=== PATIENT | female | born 1970 | race Caucasian/White ===

== ENCOUNTER 2019-10-18 05:46 | Emergency (ER) | payer SELFPAY ==
[~2019-10-18] VITALS: Ht 152.4 cm; Wt 64.0 kg
[~2019-10-18 05:46] MED LIST: CLIN300C11 PO; DOXY150T5 PO; LORA1TAB PO
[2019-10-18] MEDS ORDERED: SODIUM CHLORIDE 0.9% 1,000 ML IV ONE (06:59)
[2019-10-18 07:15] LABS: BASOPHILS % 0.8 % (0.0-2.0); EOSINOPHILS % 0.3 % (0.0-5.0); HEMATOCRIT. 42.7 % (36.0-48.0); HEMOGLOBIN. 14.4 g/dL (12.0-16.0); LYMPHOCYTES % 44.1 % (20.0-50.0); MEAN CORPUSCULAR HEMOGLOBIN 27.6 pg (28.0-32.0); MEAN CORPUSCULAR VOLUME 81.6 fL (81.0-99.0); MEAN PLATELET VOLUME 7.7 fl (7.4-10.4); MONOCYTES % 7.3 % (2.0-8.0); NEUTROPHILS % 47.5 % (40.0-76.0); PLATELET 286 x1000/uL (130-400); RED BLOOD CELL COUNT 5.23 mill/uL (4.2-5.4); RED CELL DISTRIBUTION WIDTH 14.9 % (11.6-14.6)
[2019-10-18 07:21] LABS: CHLORIDE 109 mEq/L (98-107)
[2019-10-18 07:42] LABS: ETHANOL BLOOD 400 mg/dL
[2019-10-18 10:00] VITALS: BP 148/72
== END 2019-10-18 11:11 | disposition home or self-care (01) ==
LOC: ER 05:46
DX: F10.229 Alcohol dependence with intoxication, unspecified (principal); R07.89 Other chest pain; E11.9 Type 2 diabetes mellitus without complications; I10 Essential (primary) hypertension; Y90.8 Blood alcohol level of 240 mg/100 ml or more
CPT/HCPCS: 36415; 71045; 80053; 80320; 83880; 84484; 85025; 93005; 99285; J7030; G0480

== ENCOUNTER 2021-06-25 17:41 | Emergency (ER) | payer MEDICAID ==
[~2021-06-25] VITALS: Ht 149.9 cm; Wt 63.9 kg
[~2021-06-25 17:41] MED LIST changes: -CLIN300C11 PO; +CLIN300C12 PO
[2021-06-25] MEDS ORDERED: DEXT 5%/0.9% NACL KCL 20MEQ/L 1,000 ML IV STA (18:08)
[2021-06-25] MEDS ORDERED: ONDANSETRON 4MG ODT PO STA (18:08)
[2021-06-25] MEDS ORDERED: LORAZEPAM 2MG/ML CPJ IV ONE (18:15)
[2021-06-25 18:58] LABS: BASOPHILS % 0.7 % (0.0-2.0); EOSINOPHILS % 0.2 % (0.0-5.0); HEMATOCRIT. 40.7 % (36.0-48.0); HEMOGLOBIN. 13.4 g/dL (12.0-16.0); LYMPHOCYTES % 25.4 % (20.0-50.0); MEAN CORPUSCULAR HEMOGLOBIN 28.2 pg (28.0-32.0); MEAN CORPUSCULAR VOLUME 85.9 fL (81.0-99.0); MEAN PLATELET VOLUME 7.4 fl (7.4-10.4); MONOCYTES % 5.3 % (2.0-8.0); NEUTROPHILS % 68.4 % (40.0-76.0); PLATELET 236 x1000/uL (130-400); RED BLOOD CELL COUNT 4.74 mill/uL (4.2-5.4); RED CELL DISTRIBUTION WIDTH 14.5 % (11.6-14.6)
[2021-06-25 19:03] LABS: CHLORIDE 105 mEq/L (98-107)
[2021-06-25 19:06] LABS: HCG SCREEN NEGATIVE
[2021-06-25] MEDS ORDERED: LORA-250 MT (20:24)
[2021-06-25 21:25] VITALS: BP 130/87
== END 2021-06-25 21:25 | disposition home or self-care (01) ==
LOC: ER 17:41
DX: F10.239 Alcohol dependence with withdrawal, unspecified (principal); R00.0 Tachycardia, unspecified; Y90.9 Presence of alcohol in blood, level not specified
CPT/HCPCS: 36415; 80053; 82962; 83690; 84703; 85025; 93005; 96374; 99284; J2060; Q0162

== ENCOUNTER 2021-11-30 13:54 | Emergency (ER) | payer MEDICAID ==
[~2021-11-30] VITALS: Ht 162.6 cm; Wt 65.0 kg
[~2021-11-30 13:54] MED LIST changes: +LORA-250 MT
[2021-11-30] MEDS ORDERED: SODIUM CHLORIDE 0.9% 1,000 ML IV ONE (16:30)
[2021-11-30 20:00] VITALS: BP 127/85
== END 2021-11-30 20:35 | disposition home or self-care (01) ==
LOC: ER 13:54
DX: F10.229 Alcohol dependence with intoxication, unspecified (principal); Y90.9 Presence of alcohol in blood, level not specified; E86.0 Dehydration; Z63.4 Disappearance and death of family member; I10 Essential (primary) hypertension; E11.9 Type 2 diabetes mellitus without complications; G40.909 Epilepsy, unspecified, not intractable, without status epilepticus; Z85.038 Personal history of other malignant neoplasm of large intestine; Z79.899 Other long term (current) drug therapy
CPT/HCPCS: 93005; 96360; 99283; J7030

== ENCOUNTER 2022-01-20 23:11 | Emergency (ER) | payer MEDICAID ==
[~2022-01-20] VITALS: Ht 152.4 cm; Wt 57.2 kg
[~2022-01-20 23:11] MED LIST changes: +CLIN-194 PO; -CLIN300C12 PO
[2022-01-21] MEDS ORDERED: LORAZEPAM 0.5MG TABLET PO ONE (08:15)
[2022-01-21 08:52] LABS: BASOPHILS % 0.9 % (0.0-2.0); EOSINOPHILS % 1.2 % (0.0-5.0); HEMATOCRIT. 40.5 % (36.0-48.0); HEMOGLOBIN. 13.6 g/dL (12.0-16.0); LYMPHOCYTES % 34.9 % (20.0-50.0); MEAN CORPUSCULAR HEMOGLOBIN 28.9 pg (28.0-32.0); MEAN CORPUSCULAR VOLUME 85.7 fL (81.0-99.0); MEAN PLATELET VOLUME 9.2 fl (7.4-10.4); MONOCYTES % 8.6 % (2.0-8.0); NEUTROPHILS % 54.4 % (40.0-76.0); PLATELET 137 x1000/uL (130-400); RED BLOOD CELL COUNT 4.73 mill/uL (4.2-5.4); RED CELL DISTRIBUTION WIDTH 14.4 % (11.6-14.6)
[2022-01-21 09:09] LABS: CHLORIDE 101 mEq/L (98-107)
[2022-01-21 09:20] LABS: ETHANOL BLOOD < 10 mg/dL
[2022-01-21] MEDS ORDERED: POTASSIUM-SODIUM PHOSPHATE POWDER PACKET PO ONE (09:30)
[2022-01-21 09:50] LABS: *AMPHETAMINES SCREEN URINE NEGATIVE (NEGATIVE); *BARBITURATES SCREEN URINE NEGATIVE (NEGATIVE); *BENZODIAZEPINES SCREEN URINE PRESUMTIVE POSITIVE (NEGATIVE); *COCAINE SCREEN URINE NEGATIVE (NEGATIVE); CANNABINOID URINE SCREEN NEGATIVE (NEGATIVE); METHADONE URINE SCREEN NEGATIVE (NEGATIVE); OPIATES URINE SCREEN NEGATIVE (NEGATIVE); PHENCYCLIDINE URINE SCREEN NEGATIVE (NEGATIVE)
[2022-01-21] MEDS ORDERED: KETOROLAC 30MG/ML VIAL IM NR (10:00)
[2022-01-21] MEDS ORDERED: KCL 20MEQ/100ML PREMIX 100 ML IV NR (11:00)
[2022-01-21] MEDS ORDERED: POTASSIUM CHLORIDE INJ 40 MEQ in DEXT 5% WATER 250 ML IV ONE (11:45)
[2022-01-21] MEDS ORDERED: POTASSIUM CHLORIDE 20MEQ/PACKET PO ONE (14:45)
[2022-01-21 15:39] VITALS: BP 112/80
== END 2022-01-21 15:48 | disposition home or self-care (01) ==
LOC: ER 23:34
DX: R07.89 Other chest pain (principal); E87.6 Hypokalemia; I10 Essential (primary) hypertension; G40.909 Epilepsy, unspecified, not intractable, without status epilepticus; Z85.038 Personal history of other malignant neoplasm of large intestine; Z90.49 Acquired absence of other specified parts of digestive tract
CPT/HCPCS: 36415; 70450; 71045; 76705; 80053; 80305; 80320; 83880; 84484; 85025; 93005; 96365; 96372; 99285; J1885; J3480; J7060; G0480

== ENCOUNTER 2022-04-18 04:57 | Inpatient (IN) | payer MEDICAID ==
[~2022-04-18] VITALS: Ht 149.9 cm; Wt 52.6 kg
[2022-04-18] MEDS ORDERED: CHLORDIAZEPOXIDE 25MG CAPSULE PO ONE (05:30)
[2022-04-18 05:46] LABS: BASOPHILS % 0.7 % (0.0-2.0); EOSINOPHILS % 0.4 % (0.0-5.0); HEMATOCRIT. 41.9 % (36.0-48.0); LYMPHOCYTES % 42.4 % (20.0-50.0); MEAN CORPUSCULAR HEMOGLOBIN 29.2 pg (28.0-32.0); MEAN CORPUSCULAR VOLUME 87.7 fL (81.0-99.0); MEAN PLATELET VOLUME 8.6 fl (7.4-10.4); MONOCYTES % 4.9 % (2.0-8.0); NEUTROPHILS % 51.6 % (40.0-76.0); PLATELET 169 x1000/uL (130-400); RED BLOOD CELL COUNT 4.78 mill/uL (4.2-5.4); RED CELL DISTRIBUTION WIDTH 14.1 % (11.6-14.6)
[2022-04-18 05:47] LABS: CHLORIDE 100 mEq/L (98-107)
[2022-04-18] MEDS ORDERED: SODIUM CHLORIDE 0.9% 1,000 ML IV ONE (07:15)
[2022-04-18] MEDS ORDERED: MIDAZOLAM HCL 2 MG/2 ML VIAL IV ONE (07:30)
[2022-04-18] MEDS ORDERED: KETOROLAC 15MG/ML VIAL IV PRN (10:30)
[2022-04-18] MEDS ORDERED: MAGNESIUM/ALUMINUM HYDROXIDE/SIMETHICONE 30ML UDC PO PRN (10:30)
[2022-04-18] MEDS ORDERED: CLONIDINE 0.1MG TABLET PO PRN (10:30)
[2022-04-18] MEDS ORDERED: ONDANSETRON HCL 4MG/2ML INJ IV PRN (10:30)
[2022-04-18] MEDS ORDERED: DIAZEPAM 5 MG/ML 2ML CPJ IV PRN (10:30)
[2022-04-18] MEDS ORDERED: DOCUSATE SODIUM 100MG CAPSULE PO PRN (10:30)
[2022-04-18] MEDS ORDERED: IPRATROPIUM/ALBUTEROL 0.5-3(2.5)MG/3ML NEB NEB PRN (10:30)
[2022-04-18] MEDS ORDERED: GUAIFENESIN 200MG/10ML SUGAR FREE UDC PO PRN (10:30)
[2022-04-18] MEDS ORDERED: ACETAMINOPHEN 325MG TABLET PO PRN ×2 (10:30)
[2022-04-18] MEDS ORDERED: NITROGLYCERIN 0.4MG TABLET SL SL PRN (10:30)
[2022-04-18 10:58] LABS: TOTAL IRON BINDING CAPACITY 317 ug/dL (250-450)
[2022-04-18] MEDS ORDERED: MVI, ADULT NO.1 10 ML, FOLIC ACID 1 MG, THIAMINE HCL 100 MG in SODIUM CHLORIDE 0.9% 1,0... IV SCH ×4 (11:00)
[2022-04-18 11:32] LABS: FOLIC ACID (FOLATE) SERUM 17.1 ng/mL (>5.38)
[2022-04-18] MEDS: ENOXAPARIN 40MG/0.4ML SYR SUBCUT SCH (11:39)
[2022-04-18] MEDS: CHLORDIAZEPOXIDE 25MG CAPSULE PO SCH ×2 (14:22→21:25)
[2022-04-18 16:40] VITALS: BP 125/82
[2022-04-18] MEDS ORDERED: AMLO2.5T45 PO (17:43)
[2022-04-18 20:00] VITALS: BP 125/77
[2022-04-18] MEDS: FAMOTIDINE 20MG TABLET PO SCH (21:24)
[2022-04-18 23:47] VITALS: BP 121/71
[2022-04-19 04:00] VITALS: BP 114/70
[2022-04-19] MEDS: CHLORDIAZEPOXIDE 25MG CAPSULE PO SCH ×3 (05:41→20:38)
[2022-04-19 07:52] LABS: CHLORIDE 99 mEq/L (98-107)
[2022-04-19 07:59] LABS: PHOSPHORUS 1.4 mg/dL (2.5-4.9)
[2022-04-19 08:14] LABS: BASOPHILS % 0.4 % (0.0-2.0); EOSINOPHILS % 3.6 % (0.0-5.0); HEMATOCRIT. 36.9 % (36.0-48.0); HEMOGLOBIN. 12.6 g/dL (12.0-16.0); LYMPHOCYTES % 40.3 % (20.0-50.0); MONOCYTES % 6.1 % (2.0-8.0); NEUTROPHILS % 49.6 % (40.0-76.0); PLATELET 109 x1000/uL (130-400); RED CELL DISTRIBUTION WIDTH 13.8 % (11.6-14.6)
[2022-04-19] MEDS: ENOXAPARIN 40MG/0.4ML SYR SUBCUT SCH (11:13)
[2022-04-19] MEDS: FAMOTIDINE 20MG TABLET PO SCH ×2 (11:15→20:38)
[2022-04-19 11:32] LABS: CLARITY URINE CLEAR (CLEAR); COLOR URINE YELLOW (YELLOW); KETONES URINE 4+ (NEGATIVE); LEUKOCYTE ESTERASE URINE 2+ (NEGATIVE); NITRITE URINE NEGATIVE (NEGATIVE); OCCULT BLOOD URINE NEGATIVE (NEGATIVE); PROTEIN URINE NEGATIVE (NEGATIVE); UROBILINOGEN URINE 0.2 E.U./dL (0.2-1.0)
[2022-04-19 11:51] LABS: *AMPHETAMINES SCREEN URINE NEGATIVE (NEGATIVE); *BARBITURATES SCREEN URINE NEGATIVE (NEGATIVE); *BENZODIAZEPINES SCREEN URINE PRESUMTIVE POSITIVE (NEGATIVE); *COCAINE SCREEN URINE NEGATIVE (NEGATIVE); CANNABINOID URINE SCREEN NEGATIVE (NEGATIVE); METHADONE URINE SCREEN NEGATIVE (NEGATIVE); OPIATES URINE SCREEN NEGATIVE (NEGATIVE); PHENCYCLIDINE URINE SCREEN NEGATIVE (NEGATIVE)
[2022-04-19 20:01] VITALS: BP 153/93
[2022-04-19] MEDS ORDERED: POTASSIUM CHLORIDE 20MEQ TABLET SR PO NR (23:15)
[2022-04-20] VITALS: BP 104/75
[2022-04-20] MEDS ORDERED: MAGNESIUM 2 G PREMIX 50 ML IV NR
[2022-04-20 04:00] VITALS: BP 106/74
[2022-04-20] MEDS: CHLORDIAZEPOXIDE 25MG CAPSULE PO SCH ×3 (05:49→21:27)
[2022-04-20 08:00] VITALS: BP 108/75
[2022-04-20] MEDS ORDERED: ROPIVACAINE HCL/PF EPIDURAL 200 ML EPI ONE (08:37)
[2022-04-20] MEDS ORDERED: FENTANYL CITRATE/PF 50MCG/ML 2ML VIAL ONE (08:37)
[2022-04-20] MEDS: FAMOTIDINE 20MG TABLET PO SCH ×2 (10:18→21:27)
[2022-04-20] MEDS: ENOXAPARIN 40MG/0.4ML SYR SUBCUT SCH (10:19)
[2022-04-20 12:00] VITALS: BP 128/87
[2022-04-20 16:00] VITALS: BP 125/61
[2022-04-20] MEDS: MULTIVITAMINS,THER W-MINERALS TABLET PO SCH (18:32)
[2022-04-20] MEDS: FOLIC ACID 1MG TABLET PO SCH (18:40)
[2022-04-20] MEDS: CEPHALEXIN 250MG CAPSULE PO SCH (18:40)
[2022-04-20 20:00] VITALS: BP 116/84
[2022-04-21] VITALS: BP 114/77
[2022-04-21] MEDS: CEPHALEXIN 250MG CAPSULE PO SCH ×5 (01:04→23:46)
[2022-04-21 04:30] VITALS: BP 108/56
[2022-04-21] MEDS: CHLORDIAZEPOXIDE 25MG CAPSULE PO SCH (05:41)
[2022-04-21 08:00] VITALS: BP 118/76
[2022-04-21] MEDS ORDERED: CEPHALEXIN 250MG/5ML ORAL SYRINGE PO SCH (08:00)
[2022-04-21] MEDS: FOLIC ACID 1MG TABLET PO SCH (08:41)
[2022-04-21] MEDS: FAMOTIDINE 20MG TABLET PO SCH ×2 (08:41→20:09)
[2022-04-21] MEDS: MULTIVITAMINS,THER W-MINERALS TABLET PO SCH (08:41)
[2022-04-21] MEDS: ENOXAPARIN 40MG/0.4ML SYR SUBCUT SCH (11:11)
[2022-04-21 12:00] VITALS: BP 103/70
[2022-04-21] MEDS: CHLORDIAZEPOXIDE 10MG CAPSULE PO SCH ×2 (13:37→21:25)
[2022-04-21 15:56] VITALS: BP 116/84
[2022-04-21 17:17] LABS: BASOPHILS % 0.5 % (0.0-2.0); EOSINOPHILS % 2.1 % (0.0-5.0); HEMATOCRIT. 38.2 % (36.0-48.0); HEMOGLOBIN. 12.9 g/dL (12.0-16.0); LYMPHOCYTES % 33.7 % (20.0-50.0); MEAN CORPUSCULAR HEMOGLOBIN 29.6 pg (28.0-32.0); MEAN CORPUSCULAR VOLUME 87.6 fL (81.0-99.0); MEAN PLATELET VOLUME 9.7 fl (7.4-10.4); MONOCYTES % 5.4 % (2.0-8.0); NEUTROPHILS % 58.3 % (40.0-76.0); PLATELET 106 x1000/uL (130-400); RED BLOOD CELL COUNT 4.36 mill/uL (4.2-5.4); RED CELL DISTRIBUTION WIDTH 13.5 % (11.6-14.6)
[2022-04-21 17:27] LABS: CHLORIDE 103 mEq/L (98-107)
[2022-04-21 20:00] VITALS: BP 123/86
[2022-04-22] VITALS: BP 112/74
[2022-04-22 04:00] VITALS: BP 98/74
[2022-04-22] MEDS: CHLORDIAZEPOXIDE 10MG CAPSULE PO SCH (05:54)
[2022-04-22] MEDS: CEPHALEXIN 250MG CAPSULE PO SCH (05:54)
[2022-04-22 08:00] VITALS: BP 124/82
[2022-04-22] MEDS: MULTIVITAMINS,THER W-MINERALS TABLET PO SCH (08:19)
[2022-04-22] MEDS: FOLIC ACID 1MG TABLET PO SCH (08:19)
[2022-04-22] MEDS: FAMOTIDINE 20MG TABLET PO SCH (08:19)
[2022-04-22] MEDS ORDERED: THIA50TA12 MT (10:27)
[2022-04-22] MEDS ORDERED: FOLI-43 PO (10:27)
[2022-04-22 11:14] VITALS: BP 127/80
[2022-04-22 11:30] VITALS: BP 127/80
== END 2022-04-22 11:30 | disposition home or self-care (01) | DRG 241 ==
LOC: ER 04:57 → EDBEDREQ 08:30 → 8WST 16:41
PROVIDERS: ADMIT Internal Medicine; ATTEND Internal Medicine
DX: K29.00 Acute gastritis without bleeding (principal); F10.231 Alcohol dependence with withdrawal delirium; E46 Unspecified protein-calorie malnutrition; E87.2 Acidosis; E83.51 Hypocalcemia; I10 Essential (primary) hypertension; E11.9 Type 2 diabetes mellitus without complications; F41.1 Generalized anxiety disorder; G40.909 Epilepsy, unspecified, not intractable, without status epilepticus; J45.909 Unspecified asthma, uncomplicated; Z79.899 Other long term (current) drug therapy; Z86.16 Personal history of COVID-19; Z59.00 Homelessness unspecified; Z68.23 Body mass index [BMI] 23.0-23.9, adult
CPT/HCPCS: 36415; 71045; 80048; 80053; 80305; 80320; 81003; 82607; 82746; 83036; 83540; 83550; 83605; 83735; 83880; 84100; 84484; 85025; 93005; 93970; 97162; 97165; 99285; J1650; J1885; J2250; J2795; J3010; J3411; J3475; J3490; J7030; G0480

== ENCOUNTER 2022-04-26 17:53 | Emergency (ER) | payer MEDICAID ==
[~2022-04-26] VITALS: Ht 149.9 cm; Wt 73.0 kg
[~2022-04-26 17:53] MED LIST changes: +AMLO2.5T45 PO; +FOLI-43 PO; +THIA50TA12 MT
[2022-04-26 17:55] VITALS: BP 114/78
[2022-04-26 19:07] LABS: BASOPHILS % 0.7 % (0.0-2.0); EOSINOPHILS % 3.1 % (0.0-5.0); HEMATOCRIT. 35.8 % (36.0-48.0); HEMOGLOBIN. 11.7 g/dL (12.0-16.0); MEAN CORPUSCULAR HEMOGLOBIN 29.5 pg (28.0-32.0); MEAN CORPUSCULAR VOLUME 90.7 fL (81.0-99.0); MEAN PLATELET VOLUME 7.8 fl (7.4-10.4); MONOCYTES % 8.4 % (2.0-8.0); NEUTROPHILS % 33.8 % (40.0-76.0); PLATELET 277 x1000/uL (130-400); RED BLOOD CELL COUNT 3.95 mill/uL (4.2-5.4); RED CELL DISTRIBUTION WIDTH 14.6 % (11.6-14.6)
[2022-04-26 19:14] LABS: CHLORIDE 113 mEq/L (98-107)
[2022-04-26 21:09] LABS: HCG SCREEN NEGATIVE
[2022-04-26 21:12] LABS: ETHANOL BLOOD 201 mg/dL
[2022-04-26] MEDS ORDERED: VISCOUS LIDOCAINE 2% 15 ML UDC MM STA (21:18)
[2022-04-26] MEDS ORDERED: FAMOTIDINE 20MG TABLET PO ONE (21:30)
[2022-04-26] MEDS ORDERED: ONDANSETRON 4MG ODT PO ONE (21:30)
[2022-04-26] MEDS ORDERED: MAGNESIUM/ALUMINUM HYDROXIDE/SIMETHICONE 30ML UDC PO ONE (21:30)
== END 2022-04-26 21:53 | disposition home or self-care (01) ==
LOC: ER 17:53
DX: R07.89 Other chest pain (principal); F41.9 Anxiety disorder, unspecified; F10.20 Alcohol dependence, uncomplicated; Y90.7 Blood alcohol level of 200-239 mg/100 ml; R94.31 Abnormal electrocardiogram [ECG] [EKG]; I10 Essential (primary) hypertension; G40.909 Epilepsy, unspecified, not intractable, without status epilepticus; Z86.73 Personal history of transient ischemic attack (TIA), and cerebral infarction without residual deficits; Z85.038 Personal history of other malignant neoplasm of large intestine; Z79.899 Other long term (current) drug therapy
CPT/HCPCS: 36415; 71045; 80053; 80320; 83880; 84484; 84703; 85025; 93005; 99285; G0480

== ENCOUNTER 2022-05-11 22:06 | Emergency (ER) | payer MEDICAID ==
[~2022-05-11] VITALS: Ht 160 cm; Wt 45.0 kg
[~2022-05-11 22:06] MED LIST changes: -AMLO2.5T45 PO; -CLIN-194 PO; -DOXY150T5 PO; -LORA-250 MT; -LORA1TAB PO
[2022-05-11 22:19] VITALS: BP 113/76
== END 2022-05-12 05:25 | disposition home or self-care (01) ==
LOC: ER 22:06
DX: R51.9 Headache, unspecified (principal); I10 Essential (primary) hypertension; G40.909 Epilepsy, unspecified, not intractable, without status epilepticus; F10.229 Alcohol dependence with intoxication, unspecified; Y90.9 Presence of alcohol in blood, level not specified; Z85.9 Personal history of malignant neoplasm, unspecified; Y04.0XXA Assault by unarmed brawl or fight, initial encounter; Y07.499 Other family member, perpetrator of maltreatment and neglect; Y93.89 Activity, other specified; Y92.018 Other place in single-family (private) house as the place of occurrence of the external cause
CPT/HCPCS: 99284

== ENCOUNTER 2022-07-21 15:00 | Emergency (ER) | payer MEDICAID ==
[~2022-07-21] VITALS: Ht 160 cm; Wt 55.0 kg
[2022-07-21 15:09] VITALS: BP 149/93
[2022-07-21] MEDS ORDERED: SODIUM CHLORIDE 0.9% 1,000 ML IV ONE ×2 (16:00)
[2022-07-21 17:16] LABS: BASOPHILS % 0.9 % (0.0-2.0); EOSINOPHILS % 0.6 % (0.0-5.0); HEMATOCRIT. 45.6 % (36.0-48.0); HEMOGLOBIN. 15.2 g/dL (12.0-16.0); LYMPHOCYTES % 52.3 % (20.0-50.0); MEAN CORPUSCULAR HEMOGLOBIN 30.6 pg (28.0-32.0); MEAN CORPUSCULAR VOLUME 91.8 fL (81.0-99.0); MEAN PLATELET VOLUME 7.9 fl (7.4-10.4); MONOCYTES % 3.5 % (2.0-8.0); NEUTROPHILS % 42.7 % (40.0-76.0); PLATELET 229 x1000/uL (130-400); RED BLOOD CELL COUNT 4.97 mill/uL (4.2-5.4); RED CELL DISTRIBUTION WIDTH 15.7 % (11.6-14.6)
[2022-07-21 17:25] LABS: CHLORIDE 106 mEq/L (98-107)
[2022-07-21 17:48] LABS: HCG SCREEN NEGATIVE
[2022-07-21 18:10] LABS: ETHANOL BLOOD 383 mg/dL
== END 2022-07-21 19:14 | disposition home or self-care (01) ==
LOC: ER 15:00
DX: F10.229 Alcohol dependence with intoxication, unspecified (principal); F32.A Depression, unspecified; I10 Essential (primary) hypertension; G40.909 Epilepsy, unspecified, not intractable, without status epilepticus; Z85.038 Personal history of other malignant neoplasm of large intestine; Y90.8 Blood alcohol level of 240 mg/100 ml or more
CPT/HCPCS: 36415; 80053; 80307; 80320; 80329; 84703; 85025; 96360; 99283; J7030; G0480

== ENCOUNTER 2022-07-27 10:58 | Emergency (ER) | payer MEDICAID ==
[~2022-07-27] VITALS: Ht 165.1 cm; Wt 60.0 kg
[2022-07-27 12:57] LABS: CHLORIDE 100 mEq/L (98-107)
[2022-07-27 13:18] LABS: BASOPHILS % 0.7 % (0.0-2.0); EOSINOPHILS % 0.1 % (0.0-5.0); HEMATOCRIT. 43.3 % (36.0-48.0); HEMOGLOBIN. 14.7 g/dL (12.0-16.0); LYMPHOCYTES % 38.8 % (20.0-50.0); MEAN CORPUSCULAR HEMOGLOBIN 30.8 pg (28.0-32.0); MEAN CORPUSCULAR VOLUME 90.6 fL (81.0-99.0); MEAN PLATELET VOLUME 8.8 fl (7.4-10.4); MONOCYTES % 2.8 % (2.0-8.0); NEUTROPHILS % 57.6 % (40.0-76.0); PLATELET 92 x1000/uL (130-400); RED BLOOD CELL COUNT 4.78 mill/uL (4.2-5.4)
[2022-07-27 13:20] LABS: HCG SCREEN NEGATIVE
[2022-07-27] MEDS ORDERED: FOLIC ACID 1 MG, THIAMINE HCL 100 MG, MVI, ADULT NO.1 10 ML in DEXTROSE 5% WATER 1,000 ML IV ONE ×4 (14:45)
[2022-07-27] MEDS ORDERED: CHLORDIAZEPOXIDE 25MG CAPSULE PO ONE (15:00)
[2022-07-27 17:40] VITALS: BP 144/58
[2022-07-27 17:41] LABS: ETHANOL BLOOD 501 mg/dL
== END 2022-07-27 18:18 | disposition home or self-care (01) ==
LOC: ER 10:58
DX: F10.129 Alcohol abuse with intoxication, unspecified (principal); I10 Essential (primary) hypertension; Z86.59 Personal history of other mental and behavioral disorders; Y90.9 Presence of alcohol in blood, level not specified
CPT/HCPCS: 36415; 73502; 80053; 80320; 84703; 85025; 96365; 99284; J3411; J3490; J7070; Z7610; G0480

== ENCOUNTER 2022-09-10 05:55 | Emergency (ER) | payer MEDICAID ==
[~2022-09-10] VITALS: Ht 152.4 cm; Wt 47.0 kg
[2022-09-10 06:07] VITALS: BP 133/87
== END 2022-09-10 08:21 | disposition left against medical advice (07) ==
LOC: ER 05:55
DX: Z53.21 Procedure and treatment not carried out due to patient leaving prior to being seen by health care provider (principal)

== ENCOUNTER 2022-09-10 12:10 | Emergency (ER) | payer MEDICAID ==
[~2022-09-10] VITALS: Ht 162.6 cm; Wt 64.0 kg
[2022-09-10 12:12] VITALS: BP 104/82
[2022-09-10 12:58] LABS: BASOPHILS % 0.6 % (0.0-2.0); EOSINOPHILS % 0.1 % (0.0-5.0); HEMOGLOBIN. 14.9 g/dL (12.0-16.0); NEUTROPHILS % 61.2 % (40.0-76.0)
[2022-09-10 13:01] LABS: HEMATOCRIT. 44.5 % (36.0-48.0); LYMPHOCYTES % 34.1 % (20.0-50.0); MEAN CORPUSCULAR HEMOGLOBIN 30.1 pg (28.0-32.0); MEAN CORPUSCULAR VOLUME 89.6 fL (81.0-99.0); PLATELET 257 x1000/uL (130-400); RED BLOOD CELL COUNT 4.97 mill/uL (4.2-5.4); RED CELL DISTRIBUTION WIDTH 14.4 % (11.6-14.6)
[2022-09-10 13:19] LABS: CHLORIDE 107 mEq/L (98-107)
[2022-09-10 13:22] LABS: HCG SCREEN NEGATIVE
[2022-09-10 13:42] LABS: ETHANOL BLOOD 402 mg/dL
== END 2022-09-10 14:35 | disposition left against medical advice (07) ==
LOC: ER 12:10
DX: F10.129 Alcohol abuse with intoxication, unspecified (principal); S09.90XA Unspecified injury of head, initial encounter; I10 Essential (primary) hypertension; Z86.59 Personal history of other mental and behavioral disorders; Z98.890 Other specified postprocedural states; W01.0XXA Fall on same level from slipping, tripping and stumbling without subsequent striking against object, initial encounter; Y93.89 Activity, other specified; Y92.89 Other specified places as the place of occurrence of the external cause; Y99.8 Other external cause status; Y90.8 Blood alcohol level of 240 mg/100 ml or more
CPT/HCPCS: 36415; 80053; 80320; 84703; 85025; 99284; G0480

== ENCOUNTER 2022-11-14 03:41 | Emergency (ER) | payer MEDICAID ==
[~2022-11-14] VITALS: Ht 154.9 cm; Wt 49.7 kg
[2022-11-14 03:45] VITALS: BP 115/80
== END 2022-11-14 04:36 | disposition left against medical advice (07) ==
LOC: ER 03:41
DX: Z53.21 Procedure and treatment not carried out due to patient leaving prior to being seen by health care provider (principal)
CPT/HCPCS: 99281

== ENCOUNTER 2023-05-14 11:33 | Emergency (ER) | payer MEDICAID ==
[~2023-05-14] VITALS: Ht 167.6 cm; Wt 58.0 kg
[2023-05-14 11:37] VITALS: BP 134/85; PULSE 106; RESP 18; TEMP 98.4; O2SAT 100
[2023-05-14 12:35] LABS: BASOPHILS % 1.1 % (0.0-2.0); EOSINOPHILS % 2.4 % (0.0-5.0); HEMATOCRIT. 38.5 % (36.0-48.0); HEMOGLOBIN. 12.7 g/dL (12.0-16.0); LYMPHOCYTES % 56.7 % (20.0-50.0); MEAN CORPUSCULAR HEMOGLOBIN 27.7 pg (28.0-32.0); MEAN CORPUSCULAR HGB CONC 32.9 g/dL (31.0-37.0); MEAN CORPUSCULAR VOLUME 84.1 fL (81.0-99.0); MEAN PLATELET VOLUME 7.7 fl (7.4-10.4); MONOCYTES % 4.9 % (2.0-8.0); NEUTROPHILS % 34.9 % (40.0-76.0); PLATELET 207 x1000/uL (130-400); RED BLOOD CELL COUNT 4.58 mill/uL (4.2-5.4); RED CELL DISTRIBUTION WIDTH 19.5 % (11.6-14.6); WHITE BLOOD COUNT 4.3 x1000/uL (4.5-11.0)
[2023-05-14 12:47] LABS: CHLORIDE 111 mEq/L (98-107); INDEX HEMOLYSI 1 (1-3); INDEX ICTERIC 1 (1-4); INDEX LIPEMIC 1 (1-3); POTASSIUM 3.3 mEq/L (3.5-5.1); SODIUM 147 mEq/L (136-145)
[2023-05-14 12:56] LABS: ALANINE AMINOTRANSFERASE 40 IU/L (13-61); ALBUMIN 3.6 g/dL (3.4-5.0); ASPARTATE AMINOTRANSFERASE 53 IU/L (15-37); BILIRUBIN TOTAL 0.2 mg/dL (0.1-1.0); CALCIUM 8.2 mg/dL (8.5-10.1); CARBON DIOXIDE 27 mEq/L (21-32); CREATININE 0.4 mg/dL (0.6-1.3); GLUCOSE 97 mg/dL (70-105); PROTEIN TOTAL 7.5 g/dL (6.0-8.3); UREA NITROGEN BLOOD 11 mg/dL (7-21)
== END 2023-05-14 16:00 | disposition left against medical advice (07) ==
LOC: ER 11:33
DX: F10.129 Alcohol abuse with intoxication, unspecified (principal); I10 Essential (primary) hypertension; Z86.59 Personal history of other mental and behavioral disorders; Y90.9 Presence of alcohol in blood, level not specified
CPT/HCPCS: 80053; 83735; 85025; 36415; 99283; Z7610

== ENCOUNTER 2023-05-17 16:26 | Emergency (ER) | payer MEDICAID ==
[~2023-05-17] VITALS: Ht 162.6 cm; Wt 73.0 kg
[2023-05-17 16:35] VITALS: BP 156/97; PULSE 98; RESP 18; TEMP 97.6; O2SAT 100
[2023-05-17] MEDS ORDERED: CHLORDIAZEPOXIDE 25MG CAPSULE PO ONE (17:00)
[2023-05-17 18:07] LABS: BASOPHILS % 1.2 % (0.0-2.0); EOSINOPHILS % 2.6 % (0.0-5.0); HEMATOCRIT. 38.2 % (36.0-48.0); HEMOGLOBIN. 12.6 g/dL (12.0-16.0); LYMPHOCYTES % 49.4 % (20.0-50.0); MEAN CORPUSCULAR HEMOGLOBIN 27.6 pg (28.0-32.0); MEAN CORPUSCULAR HGB CONC 32.9 g/dL (31.0-37.0); MEAN CORPUSCULAR VOLUME 83.8 fL (81.0-99.0); MEAN PLATELET VOLUME 7.4 fl (7.4-10.4); MONOCYTES % 5.7 % (2.0-8.0); NEUTROPHILS % 41.1 % (40.0-76.0); PLATELET 182 x1000/uL (130-400); RED BLOOD CELL COUNT 4.56 mill/uL (4.2-5.4); RED CELL DISTRIBUTION WIDTH 19.7 % (11.6-14.6); WHITE BLOOD COUNT 3.6 x1000/uL (4.5-11.0)
[2023-05-17 18:18] LABS: CHLORIDE 108 mEq/L (98-107); INDEX HEMOLYSI 1 (1-3); INDEX ICTERIC 1 (1-4); INDEX LIPEMIC 1 (1-3); POTASSIUM 3.5 mEq/L (3.5-5.1); SODIUM 144 mEq/L (136-145)
[2023-05-17 18:25] LABS: ACETAMINOPHEN <2 ug/mL ug/mL (10-30); ALANINE AMINOTRANSFERASE 35 IU/L (13-61); ALBUMIN 3.7 g/dL (3.4-5.0); ASPARTATE AMINOTRANSFERASE 53 IU/L (15-37); BILIRUBIN TOTAL 0.3 mg/dL (0.1-1.0); CARBON DIOXIDE 28 mEq/L (21-32); CREATININE 0.5 mg/dL (0.6-1.3); GLUCOSE 94 mg/dL (70-105); UREA NITROGEN BLOOD 7 mg/dL (7-21)
[2023-05-17 18:28] LABS: CLARITY URINE CLEAR (CLEAR); COLOR URINE YELLOW (YELLOW); GLUCOSE URINE NEGATIVE (NEGATIVE); KETONES URINE 1+ (NEGATIVE); LEUKOCYTE ESTERASE URINE TRACE (NEGATIVE); NITRITE URINE NEGATIVE (NEGATIVE); OCCULT BLOOD URINE NEGATIVE (NEGATIVE); PROTEIN URINE NEGATIVE (NEGATIVE); SPECIFIC GRAVITY URINE 1.006 (1.005-1.030); UROBILINOGEN URINE 0.2 E.U./dL (0.2-1.0)
[2023-05-17 18:32] LABS: YEAST URINE NONE SEEN
[2023-05-17 18:35] LABS: HCG SCREEN NEGATIVE
[2023-05-17 18:43] LABS: *AMPHETAMINES SCREEN URINE NEGATIVE (NEGATIVE); *BARBITURATES SCREEN URINE NEGATIVE (NEGATIVE); *BENZODIAZEPINES SCREEN URINE PRESUMTIVE POSITIVE (NEGATIVE); *COCAINE SCREEN URINE PRESUMTIVE POSITIVE (NEGATIVE); CANNABINOID URINE SCREEN NEGATIVE (NEGATIVE); ECSTASY MDMA SCREEN URINE NEGATIVE (NEGATIVE); OPIATES URINE SCREEN NEGATIVE (NEGATIVE); PHENCYCLIDINE URINE SCREEN NEGATIVE (NEGATIVE)
[2023-05-17 18:45] LABS: ETHANOL BLOOD 421 mg/dL (<10)
[2023-05-17 19:18] LABS: BACTERIA URINE TRACE
[2023-05-17 19:19] LABS: RBC URINE 0-2 /hpf (0-2); SQUAMOUS EPITHELIAL CELL URINE FEW /lpf (RARE/1+); WBC URINE 0-2 /hpf (0-2)
== END 2023-05-17 23:08 | disposition home or self-care (01) ==
LOC: ER 16:26
DX: F10.129 Alcohol abuse with intoxication, unspecified (principal); I10 Essential (primary) hypertension; Z85.038 Personal history of other malignant neoplasm of large intestine; Z98.890 Other specified postprocedural states
CPT/HCPCS: 36415; 80053; 80305; 80307; 80320; 80329; 81003; 81025; 82962; 84703; 85025; 99283; G0480

== ENCOUNTER 2023-06-14 09:49 | Emergency (ER) | payer MEDICAID ==
[~2023-06-14] VITALS: Ht 172.7 cm; Wt 69.0 kg
[2023-06-14 09:51] VITALS: BP 138/94; PULSE 88; RESP 12; TEMP 98.6; O2SAT 97
[2023-06-14 10:12] LABS: BASOPHILS % 0.9 % (0.0-2.0); HEMATOCRIT. 39.7 % (36.0-48.0); HEMOGLOBIN. 12.9 g/dL (12.0-16.0); LYMPHOCYTES % 45.5 % (20.0-50.0); MEAN CORPUSCULAR HEMOGLOBIN 27.3 pg (28.0-32.0); MEAN CORPUSCULAR HGB CONC 32.4 g/dL (31.0-37.0); MEAN CORPUSCULAR VOLUME 84.2 fL (81.0-99.0); MEAN PLATELET VOLUME 7.4 fl (7.4-10.4); MONOCYTES % 2.7 % (2.0-8.0); NEUTROPHILS % 50.9 % (40.0-76.0); PLATELET 248 x1000/uL (130-400); RED BLOOD CELL COUNT 4.71 mill/uL (4.2-5.4); WHITE BLOOD COUNT 6.4 x1000/uL (4.5-11.0)
[2023-06-14 10:26] LABS: CHLORIDE 108 mEq/L (98-107); INDEX HEMOLYSI 1 (1-3); INDEX ICTERIC 1 (1-4); INDEX LIPEMIC 1 (1-3); POTASSIUM 3.6 mEq/L (3.5-5.1); SODIUM 144 mEq/L (136-145)
[2023-06-14 10:32] LABS: AMMONIA 38 uMol/L (<32); HCG SCREEN NEGATIVE
[2023-06-14 10:34] LABS: ALANINE AMINOTRANSFERASE 70 IU/L (13-61); ALBUMIN 3.7 g/dL (3.4-5.0); ASPARTATE AMINOTRANSFERASE 60 IU/L (15-37); BILIRUBIN TOTAL 0.2 mg/dL (0.1-1.0); CALCIUM 7.6 mg/dL (8.5-10.1); CARBON DIOXIDE 25 mEq/L (21-32); CREATINE KINASE 86 IU/L (26-192); CREATININE 0.4 mg/dL (0.6-1.3); GLUCOSE 91 mg/dL (70-105); PROTEIN TOTAL 7.8 g/dL (6.0-8.3); UREA NITROGEN BLOOD 10 mg/dL (7-21)
[2023-06-14 12:44] LABS: ETHANOL BLOOD 491 mg/dL (<10)
== END 2023-06-14 15:21 | disposition home or self-care (01) ==
LOC: ER 09:49
DX: F10.129 Alcohol abuse with intoxication, unspecified (principal); R51.9 Headache, unspecified; Y90.8 Blood alcohol level of 240 mg/100 ml or more
CPT/HCPCS: 36415; 80053; 80320; 82140; 82550; 84703; 85025; 99284; G0480

== ENCOUNTER 2023-07-05 23:38 | Emergency (ER) | payer MEDICAID ==
[~2023-07-05] VITALS: Ht 165.1 cm; Wt 70.0 kg
[2023-07-05 23:43] VITALS: BP 134/86; PULSE 85; RESP 18; TEMP 98.2; O2SAT 99
== END 2023-07-06 01:10 | disposition home or self-care (01) ==
LOC: ER 23:38
DX: F10.239 Alcohol dependence with withdrawal, unspecified (principal); I10 Essential (primary) hypertension; Z59.00 Homelessness unspecified; Z85.9 Personal history of malignant neoplasm, unspecified; Z98.890 Other specified postprocedural states; Y90.9 Presence of alcohol in blood, level not specified
CPT/HCPCS: 99283

== ENCOUNTER 2023-07-08 11:10 | Emergency (ER) | payer MEDICAID ==
[~2023-07-08] VITALS: Ht 162.6 cm; Wt 53.0 kg
[2023-07-08 11:22] VITALS: BP 127/81; PULSE 100; RESP 16; TEMP 98.6; O2SAT 97
[2023-07-09] MEDS ORDERED: IBUP-2029 MT (01:08)
== END 2023-07-08 14:13 | disposition left against medical advice (07) ==
LOC: ER 11:10
DX: S22.31XA Fracture of one rib, right side, initial encounter for closed fracture (principal); F10.229 Alcohol dependence with intoxication, unspecified; I10 Essential (primary) hypertension; Z85.9 Personal history of malignant neoplasm, unspecified; W18.39XA Other fall on same level, initial encounter; Y93.89 Activity, other specified; Y92.89 Other specified places as the place of occurrence of the external cause; Y99.8 Other external cause status; Y90.0 Blood alcohol level of less than 20 mg/100 ml
CPT/HCPCS: 71100; 99283

== ENCOUNTER 2023-07-09 00:05 | Emergency (ER) | payer MEDICAID ==
[~2023-07-09] VITALS: Ht 172.7 cm; Wt 60.0 kg
[2023-07-09 00:07] VITALS: BP 135/95; PULSE 95; RESP 16; TEMP 98.5; O2SAT 96
[2023-07-09] MEDS ORDERED: IBUPROFEN 600MG TABLET PO ONE (00:30)
[2023-07-09] MEDS ORDERED: IBUP-2029 MT (01:08)
== END 2023-07-09 01:38 | disposition home or self-care (01) ==
LOC: ER 00:05
DX: F10.10 Alcohol abuse, uncomplicated (principal); S22.31XA Fracture of one rib, right side, initial encounter for closed fracture; Z98.890 Other specified postprocedural states; Z86.59 Personal history of other mental and behavioral disorders; X58.XXXA Exposure to other specified factors, initial encounter; Y93.89 Activity, other specified; Y92.89 Other specified places as the place of occurrence of the external cause; Y99.8 Other external cause status; Y90.9 Presence of alcohol in blood, level not specified
CPT/HCPCS: 71045; 99283

== ENCOUNTER 2024-11-27 23:44 | Emergency (ER) | payer MEDICAID ==
[~2024-11-27] VITALS: Ht 167.6 cm; Wt 73.0 kg
[~2024-11-27 23:44] MED LIST changes: +AMLO2.5T2 PO; +CHLO25CA11 MT; +IBUP-2029 MT; +POTA10CA93 MT; +SULF1TAB48 MT; +THIA100T72 PO
[2024-11-27 23:50] VITALS: TEMP 36.7; O2SAT 95
[2024-11-28] MEDS: FOLIC ACID 1 MG, THIAMINE HCL 100 MG, MVI, ADULT NO.1 10 ML in DEXTROSE 5% WATER 1,000 ML IV ONE (00:30)
[2024-11-28 00:53] LABS: BASOPHILS % 0.8 % (0.0-2.0); EOSINOPHILS % 0.2 % (0.0-5.0); HEMATOCRIT. 41.3 % (36.0-48.0); HEMOGLOBIN. 13.3 g/dL (12.0-16.0); MEAN CORPUSCULAR HGB CONC 32.2 g/dL (31.0-37.0); MEAN CORPUSCULAR VOLUME 86.8 fL (81.0-99.0); MEAN PLATELET VOLUME 7.9 fl (7.4-10.4); MONOCYTES % 5.1 % (2.0-8.0); NEUTROPHILS % 41.9 % (40.0-76.0); PLATELET 215 x1000/uL (130-400); RED BLOOD CELL COUNT 4.76 mill/uL (4.2-5.4); RED CELL DISTRIBUTION WIDTH 15.8 % (11.6-14.6); WHITE BLOOD COUNT 4.7 x1000/uL (4.5-11.0)
[2024-11-28 01:01] LABS: CARBON DIOXIDE 29 mEq/L (21-32); CHLORIDE 105 mEq/L (98-107); POTASSIUM 4.7 mEq/L (3.5-5.1); SODIUM 147 mEq/L (136-145)
[2024-11-28 01:02] LABS: CALCIUM 8.9 mg/dL (8.7-10.4)
[2024-11-28 01:07] LABS: CREATININE 0.5 mg/dL (0.6-1.0); ETHANOL BLOOD 300 mg/dL (<10); GLUCOSE 100 mg/dL (70-105); UREA NITROGEN BLOOD 6 mg/dL (9-23)
[2024-11-28 01:08] LABS: ALANINE AMINOTRANSFERASE 27 IU/L (10-49); ASPARTATE AMINOTRANSFERASE 40 IU/L (<34)
[2024-11-28 01:09] LABS: ALBUMIN 4.6 g/dL (3.2-4.8); BILIRUBIN DIRECT < 0.1 mg/dL (<=3.0); BILIRUBIN TOTAL 0.4 mg/dL (0.1-1.0)
[2024-11-28 01:10] LABS: TROPONIN I HIGH SENSITIVITY < 4 ng/L (3.0-34)
[2024-11-28 01:24] LABS: LACTIC ACID 3.2 mmol/L (0.4-2.0)
[2024-11-28] MEDS: ACETAMINOPHEN 325MG TABLET PO ONE (02:45)
[2024-11-28 03:33] LABS: TROPONIN I HIGH SENSITIVITY < 4 ng/L (3.0-34)
[2024-11-28 04:41] VITALS: BP 121/85; PULSE 84; RESP 18; O2SAT 96
== END 2024-11-28 04:54 | disposition home or self-care (01) ==
LOC: ER 23:44
DX: T51.0X1A Toxic effect of ethanol, accidental (unintentional), initial encounter (principal); R07.89 Other chest pain; I10 Essential (primary) hypertension; R41.82 Altered mental status, unspecified; Z79.899 Other long term (current) drug therapy; Y92.89 Other specified places as the place of occurrence of the external cause
CPT/HCPCS: 99285; 80076; 80048; 80320; 83605; 83690; 85025; 84484; 36415; 71045; 70450; 96365; J3490 ×2; J3411; J7070; Z7610; G0480

== ENCOUNTER 2025-02-04 14:09 | Emergency (ER) | payer MEDICAID ==
[~2025-02-04] VITALS: Ht 162.6 cm; Wt 59.0 kg
[2025-02-04 14:15] VITALS: O2SAT 98
[2025-02-04 17:31] VITALS: BP 123/83; PULSE 85; RESP 16; TEMP 36.9; O2SAT 98
[2025-02-04] MEDS ORDERED: IBUP-2029 MT (17:52)
[2025-02-04] MEDS: IBUPROFEN 600MG TABLET PO STA (17:53)
== END 2025-02-04 17:56 | disposition home or self-care (01) ==
LOC: ER 14:19
DX: F10.129 Alcohol abuse with intoxication, unspecified (principal); I10 Essential (primary) hypertension; Z79.899 Other long term (current) drug therapy; Y90.9 Presence of alcohol in blood, level not specified
CPT/HCPCS: 99283

== ENCOUNTER 2025-02-26 11:52 | Emergency (ER) | payer MEDICAID ==
[~2025-02-26 11:52] MED LIST changes: -SULF1TAB48 MT; -THIA100T72 PO
[2025-02-26 11:55] VITALS: PULSE 83; RESP 16; O2SAT 97
== END 2025-02-26 12:55 | disposition left against medical advice (07) ==
LOC: ER 11:52
DX: R00.2 Palpitations (principal); Z53.21 Procedure and treatment not carried out due to patient leaving prior to being seen by health care provider

== ENCOUNTER 2025-02-27 20:09 | Emergency (ER) | payer MEDICAID ==
[~2025-02-27] VITALS: Ht 162.6 cm; Wt 47.0 kg
[2025-02-27 20:15] VITALS: O2SAT 98
[2025-02-27 23:18] LABS: BASOPHILS % 0.6 % (0.0-2.0); EOSINOPHILS % 0.2 % (0.0-5.0); HEMATOCRIT. 43.4 % (36.0-48.0); HEMOGLOBIN. 14.1 g/dL (12.0-16.0); LYMPHOCYTES % 40.7 % (20.0-50.0); MEAN PLATELET VOLUME 8.0 fl (7.4-10.4); MONOCYTES % 2.8 % (2.0-8.0); NEUTROPHILS % 55.7 % (40.0-76.0); PLATELET 312 x1000/uL (130-400); RED BLOOD CELL COUNT 4.90 mill/uL (4.2-5.4); RED CELL DISTRIBUTION WIDTH 15.8 % (11.6-14.6)
[2025-02-27 23:29] LABS: CREATININE 0.6 mg/dL (0.6-1.0); UREA NITROGEN BLOOD 12 mg/dL (9-23)
[2025-02-27 23:30] LABS: HCG SCREEN NEGATIVE
[2025-02-27] MEDS: SODIUM CHLORIDE 0.9% 1,000 ML IV NR (23:34)
[2025-02-28 00:09] LABS: ETHANOL BLOOD 421 mg/dL (<10)
[2025-02-28 00:29] VITALS: BP 140/81; PULSE 87; RESP 18; TEMP 36.8; O2SAT 96
[2025-02-28 00:37] LABS: TROPONIN I HIGH SENSITIVITY < 4 ng/L (3.0-34)
== END 2025-02-28 00:50 | disposition left against medical advice (07) ==
LOC: ER 20:09
DX: F10.229 Alcohol dependence with intoxication, unspecified (principal); R00.2 Palpitations; I10 Essential (primary) hypertension; Z79.899 Other long term (current) drug therapy; Z85.038 Personal history of other malignant neoplasm of large intestine; Y90.8 Blood alcohol level of 240 mg/100 ml or more
CPT/HCPCS: 80048; 80320; 84703; 85025; 36415 ×2; 73560; 96360; 99285; 83880; 84484; 93005; J7030; Z7610; G0480

== ENCOUNTER 2025-04-02 15:32 | Emergency (ER) | payer MEDICAID ==
[~2025-04-02] VITALS: Ht 162.6 cm; Wt 63.0 kg
[2025-04-02 15:42] VITALS: BP 125/87; PULSE 95; RESP 18; TEMP 36.6; O2SAT 100
== END 2025-04-02 16:16 | disposition left against medical advice (07) ==
LOC: ER 15:32
DX: M25.561 Pain in right knee (principal); F41.9 Anxiety disorder, unspecified; Z53.21 Procedure and treatment not carried out due to patient leaving prior to being seen by health care provider
CPT/HCPCS: 99283

== ENCOUNTER 2025-04-03 10:28 | Emergency (ER) | payer MEDICAID ==
[~2025-04-03] VITALS: Ht 167.6 cm; Wt 77.0 kg
[2025-04-03 10:30] VITALS: O2SAT 99
[2025-04-03 10:40] VITALS: BP 122/76; PULSE 99; RESP 14; TEMP 36.7; O2SAT 100
[2025-04-03] MEDS ORDERED: FAMOTIDINE 20MG TABLET PO ONE (10:45)
[2025-04-03] MEDS ORDERED: MAGNESIUM/ALUMINUM HYDROXIDE/SIMETHICONE 30ML UDC PO ONE (10:45)
[2025-04-03] MEDS ORDERED: ONDANSETRON 4MG ODT PO ONE (10:45)
[2025-04-03 11:13] LABS: BASOPHILS % 0.8 % (0.0-2.0); EOSINOPHILS % 0.2 % (0.0-5.0); HEMATOCRIT. 40.9 % (36.0-48.0); HEMOGLOBIN. 13.6 g/dL (12.0-16.0); LYMPHOCYTES % 44.3 % (20.0-50.0); MEAN PLATELET VOLUME 7.9 fl (7.4-10.4); MONOCYTES % 4.9 % (2.0-8.0); NEUTROPHILS % 49.8 % (40.0-76.0); PLATELET 268 x1000/uL (130-400); RED BLOOD CELL COUNT 4.67 mill/uL (4.2-5.4); RED CELL DISTRIBUTION WIDTH 15.2 % (11.6-14.6)
[2025-04-03 11:28] LABS: CREATININE 0.6 mg/dL (0.6-1.0); ETHANOL BLOOD 300 mg/dL (<10); TROPONIN I HIGH SENSITIVITY < 4 ng/L (3.0-34); UREA NITROGEN BLOOD 10 mg/dL (9-23)
[2025-04-03 11:30] LABS: ASPARTATE AMINOTRANSFERASE 31 IU/L (<34); BILIRUBIN DIRECT < 0.1 mg/dL (<=3.0); BILIRUBIN TOTAL 0.3 mg/dL (0.1-1.0); PROTEIN TOTAL 7.4 g/dL (6.0-8.3)
[2025-04-03 11:48] LABS: HCG SCREEN NEGATIVE
== END 2025-04-03 13:30 | disposition left against medical advice (07) ==
LOC: ER 10:28
DX: F10.129 Alcohol abuse with intoxication, unspecified (principal); I10 Essential (primary) hypertension; F41.9 Anxiety disorder, unspecified; Z79.899 Other long term (current) drug therapy; Y90.8 Blood alcohol level of 240 mg/100 ml or more
CPT/HCPCS: 36415; 80048; 80076; 80320; 83735; 84484; 84703; 85025; 93005; 99284; G0480

== ENCOUNTER 2025-04-05 00:55 | Emergency (ER) | payer MEDICAID ==
[~2025-04-05] VITALS: Ht 154.9 cm; Wt 53.0 kg
[2025-04-05 00:57] VITALS: O2SAT 96
[2025-04-05 03:17] VITALS: TEMP 37.1
[2025-04-05 05:11] VITALS: BP 107/70; PULSE 91; RESP 16; O2SAT 95
== END 2025-04-05 05:13 | disposition home or self-care (01) ==
LOC: ER 00:55
DX: F10.129 Alcohol abuse with intoxication, unspecified (principal); F41.9 Anxiety disorder, unspecified; I10 Essential (primary) hypertension; Z79.899 Other long term (current) drug therapy; Y90.8 Blood alcohol level of 240 mg/100 ml or more
CPT/HCPCS: 36415; 80320; 99283; G0480

== ENCOUNTER 2025-04-05 17:13 | Emergency (ER) | payer MEDICAID ==
[~2025-04-05] VITALS: Ht 160 cm; Wt 64.0 kg
[~2025-04-05 17:13] MED LIST changes: +IBUP-1455 MT; -IBUP-2029 MT
[2025-04-05 17:16] VITALS: O2SAT 98
[2025-04-05 18:03] VITALS: BP 111/76; PULSE 107; RESP 18; TEMP 36.8; O2SAT 96
[2025-04-05] MEDS ORDERED: LORAZEPAM 1MG TABLET PO ONE (18:15)
[2025-04-05 18:33] LABS: BASOPHILS % 1.0 % (0.0-2.0); EOSINOPHILS % 0.5 % (0.0-5.0); HEMATOCRIT. 42.5 % (36.0-48.0); HEMOGLOBIN. 14.3 g/dL (12.0-16.0); LYMPHOCYTES % 50.2 % (20.0-50.0); MEAN PLATELET VOLUME 8.0 fl (7.4-10.4); MONOCYTES % 4.5 % (2.0-8.0); NEUTROPHILS % 43.8 % (40.0-76.0); PLATELET 230 x1000/uL (130-400); RED BLOOD CELL COUNT 4.87 mill/uL (4.2-5.4); RED CELL DISTRIBUTION WIDTH 15.6 % (11.6-14.6)
[2025-04-05 18:49] LABS: CREATININE 0.6 mg/dL (0.6-1.0); UREA NITROGEN BLOOD 8 mg/dL (9-23)
[2025-04-05 18:50] LABS: ETHANOL BLOOD 300 mg/dL (<10)
[2025-04-05 18:51] LABS: ASPARTATE AMINOTRANSFERASE 41 IU/L (<34); BILIRUBIN DIRECT < 0.1 mg/dL (<=3.0); BILIRUBIN TOTAL 0.5 mg/dL (0.1-1.0); PROTEIN TOTAL 7.8 g/dL (6.0-8.3); TROPONIN I HIGH SENSITIVITY < 4 ng/L (3.0-34)
== END 2025-04-05 18:43 | disposition left against medical advice (07) ==
LOC: ER 17:13
DX: F10.10 Alcohol abuse, uncomplicated (principal); I10 Essential (primary) hypertension; R06.02 Shortness of breath; Z79.899 Other long term (current) drug therapy; Y90.9 Presence of alcohol in blood, level not specified
CPT/HCPCS: 36415; 71045; 80048; 80076; 80320; 83880; 84484; 85025; 99284; G0480

== ENCOUNTER 2025-04-26 20:03 | Emergency (ER) | payer MEDICAID ==
[~2025-04-26] VITALS: Ht 157.5 cm; Wt 130.0 kg
[2025-04-26 20:06] VITALS: BP 127/74; PULSE 74; RESP 16; TEMP 36.7; O2SAT 98
[2025-04-26] MEDS ORDERED: TETANUS, DIPHTHERIA, PERTUSSIS VAC/PF 0.5ML (>10YR OLD) IM ONE (20:15)
[2025-04-26] MEDS ORDERED: ACETAMINOPHEN 325MG TABLET PO ONE (20:15)
[2025-04-26 20:43] LABS: BASOPHILS % 1.3 % (0.0-2.0); EOSINOPHILS % 0.4 % (0.0-5.0); HEMATOCRIT. 43.3 % (36.0-48.0); HEMOGLOBIN. 14.1 g/dL (12.0-16.0); LYMPHOCYTES % 45.1 % (20.0-50.0); MEAN PLATELET VOLUME 7.7 fl (7.4-10.4); MONOCYTES % 3.9 % (2.0-8.0); NEUTROPHILS % 49.3 % (40.0-76.0); PLATELET 286 x1000/uL (130-400); RED BLOOD CELL COUNT 4.85 mill/uL (4.2-5.4); RED CELL DISTRIBUTION WIDTH 15.7 % (11.6-14.6)
[2025-04-26 20:55] LABS: CREATININE 0.6 mg/dL (0.6-1.0); UREA NITROGEN BLOOD < 5 mg/dL (9-23)
[2025-04-26 20:57] LABS: ASPARTATE AMINOTRANSFERASE 59 IU/L (<34); BILIRUBIN DIRECT < 0.1 mg/dL (<=3.0); BILIRUBIN TOTAL 0.3 mg/dL (0.1-1.0); PROTEIN TOTAL 7.3 g/dL (6.0-8.3)
[2025-04-26 21:16] LABS: ETHANOL BLOOD 359 mg/dL (<10)
[2025-04-26] MEDS: TETANUS, DIPHTHERIA, PERTUSSIS VAC/PF 0.5ML (>10YR OLD) IM ONE (22:03)
[2025-04-26] MEDS: ACETAMINOPHEN 325MG TABLET PO SCH (22:04)
== END 2025-04-26 23:18 | disposition left against medical advice (07) ==
LOC: ER 20:03
DX: F10.229 Alcohol dependence with intoxication, unspecified (principal); R51.9 Headache, unspecified; F41.9 Anxiety disorder, unspecified; I10 Essential (primary) hypertension; Z79.899 Other long term (current) drug therapy; Z86.73 Personal history of transient ischemic attack (TIA), and cerebral infarction without residual deficits; Y90.8 Blood alcohol level of 240 mg/100 ml or more
CPT/HCPCS: 36415; 70486; 80048; 80076; 80320; 85025; 90471; 90715; 99285; G0480

== ENCOUNTER 2025-04-26 23:13 | Emergency (ER) | payer MEDICAID ==
[~2025-04-26] VITALS: Ht 165.1 cm; Wt 65.0 kg
[2025-04-26 23:37] VITALS: O2SAT 99
[2025-04-27 00:29] VITALS: BP 157/70; PULSE 52; RESP 18; TEMP 36.6; O2SAT 97
== END 2025-04-27 01:07 | disposition left against medical advice (07) ==
LOC: ER 23:13
DX: S00.83XA Contusion of other part of head, initial encounter (principal); T51.0X1A Toxic effect of ethanol, accidental (unintentional), initial encounter; I10 Essential (primary) hypertension; F41.9 Anxiety disorder, unspecified; Z79.899 Other long term (current) drug therapy; W19.XXXA Unspecified fall, initial encounter; Y93.89 Activity, other specified; Y92.89 Other specified places as the place of occurrence of the external cause; Y99.8 Other external cause status; Y90.9 Presence of alcohol in blood, level not specified
CPT/HCPCS: 99283

== ENCOUNTER 2025-04-27 08:24 | Emergency (ER) | payer MEDICAID ==
[~2025-04-27] VITALS: Ht 162.6 cm; Wt 59.0 kg
[2025-04-27 08:26] VITALS: BP 122/85; PULSE 83; RESP 16; TEMP 36.8; O2SAT 98
[2025-04-27] MEDS ORDERED: LORAZEPAM 0.5MG TABLET PO ONE (09:45)
== END 2025-04-27 09:57 | disposition home or self-care (01) ==
LOC: ER 08:24
DX: F10.229 Alcohol dependence with intoxication, unspecified (principal); F41.9 Anxiety disorder, unspecified; I10 Essential (primary) hypertension; Z79.899 Other long term (current) drug therapy; Y90.9 Presence of alcohol in blood, level not specified
CPT/HCPCS: 99283

== ENCOUNTER 2025-04-28 22:50 | Emergency (ER) | payer MEDICAID ==
[~2025-04-28] VITALS: Ht 149.9 cm; Wt 57.0 kg
[2025-04-28 22:54] VITALS: TEMP 36.6; O2SAT 100
[2025-04-29 00:06] LABS: BASOPHILS % 0.2 % (0.0-2.0); EOSINOPHILS % 0.4 % (0.0-5.0); HEMATOCRIT. 36.4 % (36.0-48.0); HEMOGLOBIN. 12.1 g/dL (12.0-16.0); LYMPHOCYTES % 36.9 % (20.0-50.0); MEAN PLATELET VOLUME 7.8 fl (7.4-10.4); MONOCYTES % 6.3 % (2.0-8.0); NEUTROPHILS % 56.2 % (40.0-76.0); PLATELET 229 x1000/uL (130-400); RED BLOOD CELL COUNT 4.14 mill/uL (4.2-5.4); RED CELL DISTRIBUTION WIDTH 15.0 % (11.6-14.6)
[2025-04-29] MEDS: SODIUM CHLORIDE 0.9% 1,000 ML IV SCH (00:13)
[2025-04-29] MEDS: FAMOTIDINE 20MG/2ML VIAL IV ONE (00:13)
[2025-04-29] MEDS: ONDANSETRON HCL 4MG/2ML INJ IV ONE (00:13)
[2025-04-29 00:22] LABS: CREATININE 0.6 mg/dL (0.6-1.0); TROPONIN I HIGH SENSITIVITY 5 ng/L (3.0-34); UREA NITROGEN BLOOD 6 mg/dL (9-23)
[2025-04-29 00:23] LABS: ASPARTATE AMINOTRANSFERASE 46 IU/L (<34)
[2025-04-29 00:24] LABS: BILIRUBIN DIRECT < 0.1 mg/dL (<=3.0); BILIRUBIN TOTAL 0.4 mg/dL (0.1-1.0); PROTEIN TOTAL 6.9 g/dL (6.0-8.3)
[2025-04-29 00:33] LABS: ETHANOL BLOOD 333 mg/dL (<10)
[2025-04-29 01:06] LABS: HCG SCREEN NEGATIVE
[2025-04-29] MEDS: POTASSIUM CHLORIDE 20MEQ/PACKET PO NR (01:38)
[2025-04-29 01:48] LABS: CLARITY URINE CLEAR (CLEAR); COLOR URINE YELLOW (YELLOW); GLUCOSE URINE NEGATIVE (NEGATIVE); KETONES URINE TRACE (NEGATIVE); LEUKOCYTE ESTERASE URINE TRACE (NEGATIVE); NITRITE URINE NEGATIVE (NEGATIVE); OCCULT BLOOD URINE NEGATIVE (NEGATIVE); PH URINE 6.5 (4.5-8.0); PROTEIN URINE NEGATIVE (NEGATIVE); SPECIFIC GRAVITY URINE 1.010 (1.005-1.030); UROBILINOGEN URINE 0.2 E.U./dL (0.2-1.0)
[2025-04-29 02:05] LABS: *AMPHETAMINES SCREEN URINE NEGATIVE (NEGATIVE); *BARBITURATES SCREEN URINE NEGATIVE (NEGATIVE); *BENZODIAZEPINES SCREEN URINE NEGATIVE (NEGATIVE); *COCAINE SCREEN URINE NEGATIVE (NEGATIVE); CANNABINOID URINE SCREEN NEGATIVE (NEGATIVE); ECSTASY MDMA SCREEN URINE NEGATIVE (NEGATIVE); METHADONE URINE SCREEN NEGATIVE (NEGATIVE); OPIATES URINE SCREEN NEGATIVE (NEGATIVE); PHENCYCLIDINE URINE SCREEN NEGATIVE (NEGATIVE)
[2025-04-29 03:37] LABS: SQUAMOUS EPITHELIAL CELL URINE FEW /lpf (RARE/1+)
[2025-04-29 03:38] LABS: RBC URINE 0-2 /hpf (0-2)
[2025-04-29 03:39] LABS: BACTERIA URINE NONE SEEN
[2025-04-29] MEDS: IBUPROFEN 600MG TABLET PO ONE (04:21)
[2025-04-29 05:26] VITALS: BP 123/91; PULSE 90; RESP 15; O2SAT 95
== END 2025-04-29 05:31 | disposition home or self-care (01) ==
LOC: ER 22:50
DX: S00.83XA Contusion of other part of head, initial encounter (principal); F41.9 Anxiety disorder, unspecified; I10 Essential (primary) hypertension; F10.229 Alcohol dependence with intoxication, unspecified; G89.11 Acute pain due to trauma; Z79.899 Other long term (current) drug therapy; W19.XXXA Unspecified fall, initial encounter; Y93.89 Activity, other specified; Y92.89 Other specified places as the place of occurrence of the external cause; Y99.8 Other external cause status; Y90.8 Blood alcohol level of 240 mg/100 ml or more
CPT/HCPCS: 80076; 80048; 80307; 80329; 80320; 84703; 83690; 83735; 85025; 84484; 36415; 71045; 93005; 99285; 80305; 81003; 70450; 70486; 96361; 96374; 96375; J1308; J2405; G0480

== ENCOUNTER 2025-05-14 11:50 | Emergency (ER) | payer MEDICAID ==
[~2025-05-14] VITALS: Ht 157.5 cm; Wt 56.0 kg
[2025-05-14 11:53] VITALS: BP 107/70; PULSE 74; RESP 18; TEMP 36.4; O2SAT 98
[2025-05-15] MEDS ORDERED: PROT20 MT (19:39)
== END 2025-05-14 12:40 | disposition left against medical advice (07) ==
LOC: ER 11:50
DX: F10.129 Alcohol abuse with intoxication, unspecified (principal); Z53.21 Procedure and treatment not carried out due to patient leaving prior to being seen by health care provider; Y90.9 Presence of alcohol in blood, level not specified

== ENCOUNTER 2025-05-14 23:57 | Emergency (ER) | payer MEDICAID ==
[~2025-05-14] VITALS: Ht 162.6 cm; Wt 68.0 kg
[2025-05-15 00:03] VITALS: BP 150/95; PULSE 71; RESP 12; TEMP 36.8; O2SAT 98
[2025-05-15] MEDS ORDERED: PROT20 MT (19:39)
== END 2025-05-15 00:15 | disposition left against medical advice (07) ==
LOC: ER 23:57 → CMPBEDREQ 05-15 08:22
DX: F10.129 Alcohol abuse with intoxication, unspecified (principal); R07.89 Other chest pain; F41.9 Anxiety disorder, unspecified; Z65.3 Problems related to other legal circumstances; Z79.899 Other long term (current) drug therapy; Z85.038 Personal history of other malignant neoplasm of large intestine; Y90.9 Presence of alcohol in blood, level not specified
CPT/HCPCS: 93005; 99283; 99284

== ENCOUNTER 2025-05-15 16:47 | Emergency (ER) | payer MEDICAID ==
[~2025-05-15] VITALS: Ht 162.6 cm; Wt 64.0 kg
[2025-05-15 16:52] VITALS: TEMP 36.9; O2SAT 96
[2025-05-15] MEDS ORDERED: PROT20 MT (19:39)
[2025-05-15] MEDS: SODIUM CHLORIDE 0.9% 1,000 ML IV ONE (19:43)
[2025-05-15 22:34] VITALS: BP 146/86; PULSE 85; RESP 16; O2SAT 100
== END 2025-05-15 22:35 | disposition home or self-care (01) ==
LOC: ER 16:47
DX: F10.229 Alcohol dependence with intoxication, unspecified (principal); F41.9 Anxiety disorder, unspecified; I10 Essential (primary) hypertension; Z79.899 Other long term (current) drug therapy; Y90.9 Presence of alcohol in blood, level not specified
CPT/HCPCS: 80320; 36415; 93005; 96360; 99284; J7030; G0480

== ENCOUNTER 2025-05-17 12:07 | Emergency (ER) | payer MEDICAID ==
[~2025-05-17] VITALS: Ht 157.5 cm; Wt 64.0 kg
[~2025-05-17 12:07] MED LIST changes: +PROT20 MT
[2025-05-17 12:10] VITALS: BP 148/82; PULSE 79; RESP 18; TEMP 36.9; O2SAT 98
== END 2025-05-17 13:27 | disposition left against medical advice (07) ==
LOC: ER 12:07
DX: F10.229 Alcohol dependence with intoxication, unspecified (principal); I10 Essential (primary) hypertension; F41.9 Anxiety disorder, unspecified; Z79.899 Other long term (current) drug therapy; Y90.9 Presence of alcohol in blood, level not specified
CPT/HCPCS: 82962; 99283

== ENCOUNTER 2025-05-17 23:04 | Emergency (ER) | payer MEDICAID ==
[~2025-05-17] VITALS: Ht 162.6 cm; Wt 57.0 kg
[2025-05-17 23:07] VITALS: O2SAT 98
[2025-05-18 03:26] VITALS: BP 111/76; PULSE 85; RESP 12; TEMP 36.7; O2SAT 95
== END 2025-05-18 04:24 | disposition home or self-care (01) ==
LOC: ER 23:04
DX: F10.239 Alcohol dependence with withdrawal, unspecified (principal); I10 Essential (primary) hypertension; F41.9 Anxiety disorder, unspecified; Z79.899 Other long term (current) drug therapy; Y90.9 Presence of alcohol in blood, level not specified
CPT/HCPCS: 99283

== ENCOUNTER 2025-06-16 04:02 | Emergency (ER) | payer MEDICAID ==
[~2025-06-16] VITALS: Ht 149.9 cm; Wt 57.0 kg
[2025-06-16 04:08] VITALS: O2SAT 99
[2025-06-16 04:23] VITALS: BP 112/73; PULSE 70; RESP 18; TEMP 37; O2SAT 98
[2025-06-16 04:43] LABS: BASOPHILS % 1.0 % (0.0-2.0); EOSINOPHILS % 2.9 % (0.0-5.0); HEMATOCRIT. 42.3 % (36.0-48.0); HEMOGLOBIN. 13.6 g/dL (12.0-16.0); LYMPHOCYTES % 49.8 % (20.0-50.0); MEAN PLATELET VOLUME 8.1 fl (7.4-10.4); MONOCYTES % 6.8 % (2.0-8.0); NEUTROPHILS % 39.5 % (40.0-76.0); PLATELET 232 x1000/uL (130-400); RED BLOOD CELL COUNT 4.58 mill/uL (4.2-5.4); RED CELL DISTRIBUTION WIDTH 15.4 % (11.6-14.6)
[2025-06-16 04:58] LABS: CREATININE 0.6 mg/dL (0.6-1.0); UREA NITROGEN BLOOD 7 mg/dL (9-23)
[2025-06-16 05:00] LABS: TROPONIN I HIGH SENSITIVITY < 4 ng/L (3.0-34)
[2025-06-16] MEDS: IBUPROFEN 600MG TABLET PO ONE (05:45)
[2025-06-16] MEDS ORDERED: METH-653 MT (06:01)
[2025-06-16] MEDS ORDERED: IBUP-1455 MT (06:01)
[2025-06-16] MEDS ORDERED: LIDO700A30 TP (06:01)
== END 2025-06-16 06:55 | disposition home or self-care (01) ==
LOC: ER 04:02
DX: S33.5XXA Sprain of ligaments of lumbar spine, initial encounter (principal); S20.212A Contusion of left front wall of thorax, initial encounter; I11.0 Hypertensive heart disease with heart failure; I50.9 Heart failure, unspecified; F41.9 Anxiety disorder, unspecified; F10.20 Alcohol dependence, uncomplicated; Z79.899 Other long term (current) drug therapy; W19.XXXA Unspecified fall, initial encounter; Y93.89 Activity, other specified; Y92.89 Other specified places as the place of occurrence of the external cause; Y99.8 Other external cause status; Y90.9 Presence of alcohol in blood, level not specified
CPT/HCPCS: 36415; 71045; 72110; 80048; 84484; 85025; 93005; 99285